=== PATIENT | female | born 1985 | race Caucasian/White ===

== ENCOUNTER 2017-06-28 19:47 | Emergency (ER) | payer MEDICAID ==
[~2017-06-28] VITALS: Ht 160 cm; Wt 63.5 kg
[2017-06-28 19:56] VITALS: BP 119/75
--- NOTE | 2017-06-28 20:01 | NUR ---
TO BED #5 AMBULATORY WITH THE DAUGHTER
--- NOTE | 2017-06-28 20:33 | NUR ---
PT RESTING IN BED, NO S/S OF DISTRESS NOTED AT THIS MOMENT, WILL CONT TO MONITOR.
[2017-06-28] MEDS ORDERED: NITROFURANTOIN 100 MG CAP PO SCH (20:35)
[2017-06-28] MEDS ORDERED: IBUPROFEN 600 MG TAB PO ONE (20:35)
--- NOTE | 2017-06-28 20:40 | NUR ---
microbid not available in ER. House sup called for med request. Er made aware.
[2017-06-28 21:14] VITALS: BP 132/77
--- NOTE | 2017-06-28 21:14 | NUR ---
Patient discharged with v/s stable. Written and verbal after care instructions given and explained. Patient alert, oriented and verbalized understanding of instructions. Ambulatory with steady gait. All questions addressed prior to discharge. ID band removed. Patient advised to follow up with PMD. Rx of ibuprofen, and macrobid given. Patient educated on indication of medication including possible reaction and side effects. Opportunity to ask questions provided and answered.
== END 2017-06-28 21:14 | disposition home or self-care (01) ==
LOC: MED 19:47
DX: N39.0 Urinary tract infection, site not specified (principal)
CPT/HCPCS: 81002; 81025; 87086; 99283